=== PATIENT | male | born 1955 | race African-American/Black ===

== ENCOUNTER 2018-08-26 07:19 | Emergency (ER) | payer MEDICAID ==
[~2018-08-26] VITALS: Ht 172.7 cm; Wt 72.6 kg
[2018-08-26 07:30] VITALS: BP 112/78
--- NOTE | 2018-08-26 07:31 | NUR ---
ED Nurse Note: brought in by ambulance from [facility] for g-tube replacement. Blake 16Fr was inserted by SNF staff. A/Ox2. Contracted bilateral upper extremities.
--- NOTE | 2018-08-26 07:57 | NUR ---
ED Nurse Note: GT 16Fr replaced by Dr. Ruvalcaba. Waiting for Xray abdomen.
--- NOTE | 2018-08-26 08:02 | Emergency Room Report ---
History of Present Illness General Chief Complaint: Malfunctioning Gastric Tube Source: Medical Record, EMS Present Illness HPI This patient presents from a [facility] facility for G-tube dislodgment. There are no other complaints. Allergies: Coded Allergies: No Known Allergies (Unverified , 07/29/18) Patient History Past Medical History: see triage record, old chart reviewed, DM, HTN, CVA/TIA - hemiplegia Social History: Denies: smoking, alcohol use, drug use Reviewed Nursing Documentation: PMH: Agreed; PSxH: Agreed Nursing Documentation-PMH Hx Cardiac Problems: No - hyperlipidemia Hx Hypertension: Yes Hx Diabetes: Yes Hx Gastrointestinal Problems: Yes - g-tube Hx Cerebrovascular Accident: Yes - left sided hemiplagia, dysphagia Review of Systems All Other Systems: negative except mentioned in HPI Physical Exam Vital Signs Date Time Temp Pulse Resp B/P (MAP) Pulse Ox O2 Delivery O2 Flow Rate FiO2 08/26/18 07:23 98.4 92 16 113/78 98 Room Air Sp02 EP Interpretation: reviewed, normal General Appearance: no apparent distress, alert, GCS 15, non-toxic Head: normocephalic, atraumatic ENT: normal pharynx, no angioedema, normal voice Respiratory: no respiratory distress, no retraction, no accessory muscle use, speaking full sentences Gastrointestinal: normal bowel sounds, non tender, soft, non-distended, no guarding, no rebound, other - Blake catheter placed in G-tube site. Rectal: deferred Neurologic: alert, responsive Psychiatric: mood/affect normal Skin: warm/dry, well hydrated Medical Decision Making Diagnostic Impression: Primary Impression: Malfunction of percutaneous endoscopic gastrostomy (PEG) tube ER Course This patient presents for G-tube replacement. The G-tube was replaced in the typical manner without complication or incident. A KUB was obtained which showed Gastrografin consistent with appropriate placement in the stomach. The patient was returned to the [facility] facility. Other X-Ray Diagnostic Results Other X-Ray Diagnostic Results : X-Ray ordered: KUB # of Views/Limited Vs Complete: 1 View Indication: Other - tube placement Interpretation: other - Findings c/w appropriate G-tube placement in the stomach. Impression: Other - See above. Electronically Signed by: Catia Quintana DO Last Vital Signs Date Time Temp Pulse Resp B/P (MAP) Pulse Ox O2 Delivery O2 Flow Rate FiO2 08/26/18 07:30 98.4 91 15 112/78 100 Room Air Status: improved Disposition: HOME, SELF-CARE Condition: Improved Patient Instructions: Gastrostomy Tube Home Guide, Adult Catia Quintana DO Aug 26, 2018 08:02
--- NOTE | 2018-08-26 08:10 | NUR ---
ED Nurse Note: RADIOLOGY CONTACTED FOR XRAY ABDOMEN.
--- NOTE | 2018-08-26 09:07 | NUR ---
ED Nurse Note: XRAY AT THE BEDSIDE.
--- NOTE | 2018-08-26 09:18 | Diagnostic Imaging Report ---
Indication: Post gastrostomy replacement Technique: Supine view of the abdomen after injection of water-soluble contrast into gastrostomy Comparison: Findings: Contrast opacifies the stomach. No contrast extravasation is demonstrated. The bowel gas pattern is unremarkable. Impression: Satisfactory position of gastrostomy tube
--- NOTE | 2018-08-26 09:30 | NUR ---
ED Nurse Note: PER , GT IS IN PLACED AND PT CAN BE TRANSFER BACK TO SNF. REPORT GIVEN TO AYANA TALAMANTES FROM [facility]. WAITING FOR THE AMBULANCE TO ARRIVE.
[2018-08-26 09:55] VITALS: BP 116/72
[2018-08-26 10:12] VITALS: BP 114/72
--- NOTE | 2018-08-26 10:13 | NUR ---
ED Nurse Note: Pt cleared by health care Provider for discharge. DC instructions/prescription was given and explained to pt and verbalized understanding of teachings. All medical deviecs such as ID band removed. [facility] ambulance will be transfering pt back to [facility]. No s/s of distress.
== END 2018-08-26 10:15 | disposition home or self-care (01) ==
LOC: EDUNIT# 07:19 → EDBD 07:19 → EMR 08:25
DX: K94.23 Gastrostomy malfunction (principal); Y84.9 Medical procedure, unspecified as the cause of abnormal reaction of the patient, or of later complication, without mention of misadventure at the time of the procedure; Y92.129 Unspecified place in nursing home as the place of occurrence of the external cause; I10 Essential (primary) hypertension; E11.9 Type 2 diabetes mellitus without complications; I69.354 Hemiplegia and hemiparesis following cerebral infarction affecting left non-dominant side; I69.991 Dysphagia following unspecified cerebrovascular disease; R13.10 Dysphagia, unspecified
CPT/HCPCS: 74018; 99283